=== PATIENT | male | born 1960 ===

== ENCOUNTER 2016-10-30 13:26 | Emergency (ER) | payer MEDICARE, OTHER ==
[2016-10-30 13:26] VITALS: BMI 26.9
[2016-10-30 13:40] VITALS: TEMP 97; O2SAT 100
--- NOTE | 2016-10-30 14:23 | ED PDOC ---
Past Medical History Vital Signs: Last Vital Signs Temp 97 F L 10/30/16 13:38 Pulse 80 10/30/16 13:38 Resp 20 10/30/16 13:38 BP 159/100 H 10/30/16 13:38 Pulse Ox 100 10/30/16 13:38 - Medical History PMH: Gastritis (EGD 10/07 showed Jodi, GERD and Gastritis), Gall Bladder Disease, HIV Denies: Crohn's Disease, Diverticulitis, Pancreatitis, Chronic Kidney Disease - Surgical History Surgical History: Cholecystectomy, Endoscopy - Family History Family History: States: Unknown Family Hx - Immunization History Hx Tetanus Toxoid Vaccination: Yes Hx Influenza Vaccination: Yes Hx Pneumococcal Vaccination: Yes - Home Medications Home Medications: Ambulatory Orders Medication Instructions Recorded Lopinavir/Ritonavir [Kaletra 200 mg PO BID 04/22/13 200-50 mg Tablet] valGANciclovir [Valcyte] 450 mg PO DAILY 04/22/13 Famotidine [Pepcid] 20 mg PO HS #20 tab 06/18/15 Emtricitabine/Tenofovir (Tdf) 1 each PO DAILY 06/13/16 [Truvada 100 mg-150 mg Tablet] Hydrocortisone [Cortef] 10 mg PO BID 06/13/16 Ondansetron [Zofran Odt] 4 mg PO Q8 PRN #12 odt 06/13/16 traMADol [Ultram] 50 mg PO BID PRN #12 tab 06/13/16 - Allergies Allergies/Adverse Reactions: Allergies Allergy/AdvReac Type Severity Reaction Status Date / Time No Known Allergies Allergy Verified 10/30/16 13:34 - ECG O2 Sat by Pulse Oximetry: 100
--- NOTE | 2016-10-30 14:23 | ED PDOC ---
HPI: Male Pain Time Seen by Provider: 10/30/16 14:11 Chief Complaint (Nursing): Male Genitourinary Chief Complaint (Provider): Male Genitourinary History Per: Patient History/Exam Limitations: no limitations Onset/Duration Of Symptoms: Days (6x) Current Symptoms Are (Timing): Still Present Severity: Moderate Quality Of Discomfort: Burning, "Pain" Associated Symptoms: Fever (1x day (yesterday), has since resolved), Loss Of Appetite, Back Pain, Urinary Symptoms (burning and pain while urinating, urgency and frequency). denies: Nausea, Vomiting, Diarrhea, Chest Pain, Constipation Additional History Per: Patient Additional Complaint(s): 56 year old male with no pertinent medical history presents to the ED with complaints of dysuria that started 6x days ago and has been worsening. He reports that it tian and is painful to urinate, and he has associated symptoms of urgency, frequency, loss of appetite, and lower back pain. He denies having any penile rashes or discharge, shortness of breath, chest pain, abdominal pain , nausea, vomiting, diarrhea. PMD: Anita Muhammad MD Past Medical History Reviewed: Historical Data, Nursing Documentation, Vital Signs Vital Signs: Last Vital Signs Temp 97 F L 10/30/16 13:38 Pulse 80 10/30/16 13:38 Resp 20 10/30/16 13:38 BP 159/100 H 10/30/16 13:38 Pulse Ox 100 10/30/16 13:38 - Medical History PMH: Gastritis (EGD 10/07 showed Jodi, GERD and Gastritis), Gall Bladder Disease, HIV Denies: Crohn's Disease, Diverticulitis, Pancreatitis, Chronic Kidney Disease - Surgical History Surgical History: Cholecystectomy, Endoscopy - Family History Family History: States: Unknown Family Hx - Social History Current smoker - smoking cessation education provided: No Alcohol: None Drugs: Denies - Immunization History Hx Tetanus Toxoid Vaccination: Yes Hx Influenza Vaccination: Yes Hx Pneumococcal Vaccination: Yes - Home Medications Home Medications: Ambulatory Orders Medication Instructions Recorded Lopinavir/Ritonavir [Kaletra 200 mg PO BID 04/22/13 200-50 mg Tablet] valGANciclovir [Valcyte] 450 mg PO DAILY 04/22/13 Famotidine [Pepcid] 20 mg PO HS #20 tab 06/18/15 Emtricitabine/Tenofovir (Tdf) 1 each PO DAILY 06/13/16 [Truvada 100 mg-150 mg Tablet] Hydrocortisone [Cortef] 10 mg PO BID 06/13/16 Ondansetron [Zofran Odt] 4 mg PO Q8 PRN #12 odt 06/13/16 traMADol [Ultram] 50 mg PO BID PRN #12 tab 06/13/16 Ciprofloxacin HCl [Cipro] 500 mg PO BID 7 Days 10/30/16 - Allergies Allergies/Adverse Reactions: Allergies Allergy/AdvReac Type Severity Reaction Status Date / Time No Known Allergies Allergy Verified 10/30/16 13:34 Review of Systems ROS Statement: Except As Marked, All Systems Reviewed And Found Negative Constitutional: Positive for: Fever (1x day, has since resolved), Other (lack of appetite) Cardiovascular: Negative for: Chest Pain Respiratory: Negative for: Shortness of Breath Gastrointestinal: Negative for: Nausea, Vomiting, Abdominal Pain, Diarrhea, Constipation Genitourinary Male: Positive for: Dysuria, Frequency. Negative for: Incontinence, Hematuria, Penile Discharge, Rash Musculoskeletal: Positive for: Back Pain (lower back pain), Leg Pain (right leg pain) Skin: Negative for: Rash, Lesions Physical Exam - Reviewed Nursing Documentation Reviewed: Yes Vital Signs Reviewed: Yes - Physical Exam Appears: Positive for: Well, Non-toxic, No Acute Distress Head Exam: Positive for: ATRAUMATIC, NORMOCEPHALIC Skin: Positive for: Normal Color, Warm, Dry. Negative for: Rash Cardiovascular/Chest: Positive for: Regular Rate, Rhythm, Chest Non Tender Respiratory: Positive for: Normal Breath Sounds. Negative for: Respiratory Distress Gastrointestinal/Abdominal: Positive for: Normal Exam, Soft. Negative for: Tenderness Male Genital Exam: Positive for: normal genitalia, other (Chaperoned by the scribe (Ailyn). circumcised. normal cremasteric reflex.). Negative for: erythema , lesions, testicular tenderness (R), testicular tenderness (L), urethral discharge Back: Negative for: Normal Inspection (mild tenderness across lower back), L CVA Tenderness, R CVA Tenderness, Other (no flank tenderness) Extremity: Positive for: Normal ROM Neurologic/Psych: Positive for: Alert, Oriented (3x) - Laboratory Results Result Diagrams: 10/30/16 15:00 10/30/16 15:00 - ECG O2 Sat by Pulse Oximetry: 100 (RA) Pulse Ox Interpretation: Normal - Progress ED Course And Treament: 1730: Stable. AAOx3. Urine with no findings. Appendix mild dilated. Spoke with surgery. Will see pt. in ER. 1803: Surgery resident saw pt. and spoke with Dr. Hoover. Want pt. to be dc. Not appendicitis per their evaluation. Will dc with cipro for uti clinical presentation. Tolerated PO. Ambulated. No abd pain. Medical Decision Making Medical Decision Makin:11 Initial impression: 56 year old male with dysuria and lower back pain. Initial plan: * CMP * lactic acid, plasma * udip * CBC * IV NS 1,000ml IV 1,000mls/hr * toradol 30mg IV * blood culture * urine culture * urinalysis * reevaluation Scribe Attestation: Documented by Katia Dupree, acting as a scribe for Esvin Warren MD. Provider Scribe Attestation: All medical record entries made by the Scribe were at my direction and personally dictated by me. I have reviewed the chart and agree that the record accurately reflects my personal performance of the history, physical exam, medical decision making, and the department course for this patient. I have also personally directed, reviewed, and agree with the discharge instructions and disposition. Disposition - Clinical Impression Clinical Impression: UTI (urinary tract infection) - Patient ED Disposition Is Patient to be Admitted: No - Disposition Referrals: [facility] [Outside] - 11/01/16 Disposition: Routine/Home Disposition Time: 18:06 Condition: STABLE Additional Instructions: Return if not better in 3 days. If any abd pain, not feeling well, fears, nausea, vomit, come back right away for further evaluation as it could be related to your appendix. Prescriptions: Ciprofloxacin HCl [Cipro] 500 mg PO BID 7 Days Instructions: Urinary Tract Infection in Men (ED)
[2016-10-30] MEDS ORDERED: Sodium Chloride 0.9% 1,000 ML IV STA (14:24)
[2016-10-30 15:22] LABS: BASO % 0.7 % (0.0-2.0); EOS # 0.1 K/uL (0.0-0.7); EOS % 2.9 % (0.0-4.0); HEMATOCRIT 41.1 % (35.0-51.0); LYMPH % 31.8 % (20.0-40.0); MEAN CELL VOLUME 97.7 fl (80.0-94.0); MEAN CORPUSCULAR HEMOGLOBIN 33.2 pg (27.0-31.0); MEAN CORPUSCULAR HGB CONC 33.9 g/dL (33.0-37.0); MEAN PLATELET VOLUME 9.8 fl (7.2-11.7); MONO # 0.1 K/uL (0.0-0.8); MONO % 4.4 % (0.0-10.0); NEUT # 1.9 K/uL (1.8-7.0); NEUT % 60.2 % (50.0-75.0); NRBC % 0.2 % (0.0-0.0); RED CELL DISTRIBUTION WIDTH 12.1 % (11.5-14.5); WHITE BLOOD COUNT 3.2 K/uL (4.8-10.8)
[2016-10-30 15:26] LABS: ALB/GLOB RATIO 1.2 (1.0-2.1); ALKALINE PHOSPHATASE 83 U/L (38-126); ALT/SGPT 26 U/L (21-72); AST/SGOT 43 U/L (17-59); BILIRUBIN,TOTAL 4.4 mg/dl (0.2-1.3); BLOOD UREA NITROGEN 9 mg/dl (9-20); CALCIUM 9.2 mg/dL (8.4-10.2); CARBON DIOXIDE 23 mmol/L (22-30); CHLORIDE 102 mmol/L (98-107); GFR AFRICAN-AMERICAN > 60; GLUCOSE,RANDOM 92 mg/dL (75-110); SODIUM 139 mmol/l (132-148); TOTAL PROTEIN 8.9 G/DL (6.3-8.2)
[2016-10-30 15:27] LABS: POTASSIUM 4.6 MMOL/L (3.6-5.0)
[2016-10-30 15:35] LABS: RBC URINE 1 /hpf (0-3); URINE BILIRUBIN NEGATIVE (NEGATIVE); URINE BLOOD NEGATIVE (NEGATIVE); URINE COLOR STRAW (YELLOW); URINE GLUCOSE (UA) NEG (Normal); URINE KETONE NEGATIVE (NEGATIVE); URINE LEUKOCYTE ESTERASE NEG Leu/uL (Negative); URINE PROTEIN NEGATIVE (NEGATIVE); URINE UROBILINOGEN 0.2-1.0 mg/dL (0.2-1.0); WBC URINE < 1 /hpf (0-5)
[2016-10-30] MEDS ORDERED: Sodium Chloride 0.9% 50 ML IV ONE (16:17)
[2016-10-30] MEDS ORDERED: Iohexol 300 100 ML IJ ONE (16:17)
--- NOTE | 2016-10-30 17:17 | CT ---
PROCEDURE: CT Abdomen and Pelvis with contrast HISTORY: Painful urination. COMPARISON: None. TECHNIQUE: Contrast dose: 40 cc Omnipaque 300 Radiation dose: Total exam DLP = 922.02 mGy-cm. This CT exam was performed using one or more of the following dose reduction techniques: Automated exposure control, adjustment of the mA and/or kV according to patient size, and/or use of iterative reconstruction technique. FINDINGS: LOWER THORAX: Unremarkable. LIVER: Unremarkable. No gross lesion or ductal dilatation. GALLBLADDER AND BILE DUCTS: Status post cholecystectomy. No abnormality is seen in the gallbladder fossa. PANCREAS: Unremarkable. No gross lesion or ductal dilatation. SPLEEN: Unremarkable. ADRENALS: Unremarkable. No mass. KIDNEYS AND URETERS: Unremarkable. No hydronephrosis. No solid mass. VASCULATURE: Unremarkable. No aortic aneurysm. BOWEL: Unremarkable. No obstruction. No gross mural thickening. APPENDIX: Prominent slightly dilated appendix. No evidence of right lower quadrant, periappendiceal inflammatory changes. Appendiceal diameter 9 mm. PERITONEUM: Unremarkable. No free fluid. No free air. LYMPH NODES: Unremarkable. No enlarged lymph nodes. BLADDER: Unremarkable. REPRODUCTIVE: Unremarkable. BONES: No acute fracture. OTHER FINDINGS: None. IMPRESSION: No acute findings related to/accounting for the clinical presentation. Additional benign and/or incidental findings described above. The appendix is mildly dilated without evidence of inflammatory changes. Communication of results: I discussed findings directly with the attending physician in the emergency department Dr. Warren at 17:14. October 30, 2016.
[2016-10-30 18:19] VITALS: BP 124/85; PULSE 64; RESP 18
--- NOTE | 2016-10-30 18:35 | CP.PCM.CON ---
History of Present Illness - History of Present Illness History of Present Illness: General Surgery Consult Note for Dr. king This is a 56M with a PMH of HTN and HIV last CD4 is 360 on heart meds. He presents due to 6 days history of painful urination and back pain. The patient reports a 101 fever at home. He denies any blood in his urine, however he does report back pain. He reports that he is having loose non bloody stools. He denies any abdominal pain at this time or throughout the 6 days of urinary symptoms. He deneis nausea and or vomiting. PMH: See above PSH: Cholecystectomy ALL: NKDA Social denies Tobacco, ETOH, Drugs Review of Systems - Constitutional Constitutional: Fever. absent: Anorexia, Chills, Weight Loss - EENT Eyes: absent: Blind Spots, Blurred Vision Ears: absent: Ear Discharge, Ear Pain Nose/Mouth/Throat: absent: Nasal Congestion, Nose Pain - Cardiovascular Cardiovascular: absent: Chest Pain, Dyspnea - Respiratory Respiratory: absent: Dyspnea, Dyspnea on Exertion - Gastrointestinal Gastrointestinal: absent: Abdominal Pain, Bloating, Cramping, Diarrhea, Dysphagia, Heartburn, Hematemesis, Nausea, Vomiting - Genitourinary Genitourinary: Dysuria - Musculoskeletal Musculoskeletal: Back Pain Past Patient History - Infectious Disease Hx of Infectious Diseases: None - Past Medical History & Family History Past Medical History?: Yes - Past Social History Alcohol: None Drugs: Denies - CARDIAC Hx Cardiac Disorders: No - PULMONARY Hx Respiratory Disorders: No - NEUROLOGICAL Hx Neurological Disorder: No - HEENT Hx HEENT Problems: No - RENAL Hx Chronic Kidney Disease: No - ENDOCRINE/METABOLIC Hx Endocrine Disorders: No - HEMATOLOGICAL/ONCOLOGICAL Hx Human Immunodeficiency Virus (HIV): Yes - INTEGUMENTARY Hx Dermatological Problems: No - MUSCULOSKELETAL/RHEUMATOLOGICAL Hx Musculoskeletal Disorders: No - GASTROINTESTINAL Hx Crohn's Disease: No Hx Diverticulitis: No Hx Gall Bladder Disease: Yes Hx Gastritis: Yes (EGD 10/07 showed Jodi, GERD and Gastritis) Hx Pancreatitis: No - GENITOURINARY/GYNECOLOGICAL Hx Genitourinary Disorders: No - PSYCHIATRIC Hx Substance Use: No - SURGICAL HISTORY Hx Cholecystectomy: Yes - ANESTHESIA Hx Anesthesia: Yes Hx Anesthesia Reactions: No Hx Malignant Hyperthermia: No Meds Home Medications: Home Medication List Medication Instructions Recorded Confirmed Type Ciprofloxacin HCl [Cipro] 500 mg PO BID 7 Days 10/30/16 Rx Allergies/Adverse Reactions: Allergies Allergy/AdvReac Type Severity Reaction Status Date / Time No Known Allergies Allergy Verified 10/30/16 13:34 Physical Exam - Constitutional Appears: Non-toxic, No Acute Distress - Head Exam Head Exam: ATRAUMATIC, NORMOCEPHALIC - Eye Exam Eye Exam: EOMI, Normal appearance - ENT Exam ENT Exam: Mucous Membranes Moist - Respiratory Exam Respiratory Exam: NORMAL BREATHING PATTERN - Cardiovascular Exam Cardiovascular Exam: REGULAR RHYTHM - GI/Abdominal Exam GI & Abdominal Exam: Soft. absent: Distended, Firm, Guarding, Hernia, Rebound, Rigid Additional comments: No mcburnys tenderness, no rovsing, no rebound - Extremities Exam Extremities exam: Positive for: normal inspection - Neurological Exam Neurological exam: Alert, Oriented x3 - Psychiatric Exam Psychiatric exam: Normal Affect, Normal Mood - Skin Skin Exam: Normal Color, Warm Results - Vital Signs Recent Vital Signs: Last Vital Signs Temp 97 F L 10/30/16 13:38 Pulse 64 10/30/16 18:16 Resp 18 10/30/16 18:16 BP 124/85 10/30/16 18:16 Pulse Ox 100 10/30/16 18:16 - Labs Result Diagrams: 10/30/16 15:00 10/30/16 15:00 Labs: Laboratory Results - last 24 hr 10/30/16 10/30/16 10/30/16 15:00 15:00 15:00 WBC 3.2 L RBC 4.21 L Hgb 13.9 Hct 41.1 MCV 97.7 H MCH 33.2 H MCHC 33.9 RDW 12.1 Plt Count 156 MPV 9.8 Neut % (Auto) 60.2 Lymph % (Auto) 31.8 [place] % (Auto) 4.4 Eos % (Auto) 2.9 Baso % (Auto) 0.7 Neut # 1.9 Lymph # 1.0 [place] # 0.1 Eos # 0.1 Baso # 0.0 Sodium 139 Potassium 4.6 Chloride 102 Carbon Dioxide 23 Anion Gap 18 BUN 9 Creatinine 1.0 Est GFR ( Amer) > 60 Est GFR (Non-Af Amer) > 60 Random Glucose 92 Lactic Acid Calcium 9.2 Total Bilirubin 4.4 H AST 43 ALT 26 Alkaline Phosphatase 83 Total Protein 8.9 H Albumin 4.9 Globulin 4.0 H Albumin/Globulin Ratio 1.2 Urine Color Straw Urine Clarity Clear Urine pH 6.0 Ur Specific [place] < 1.005 Urine Protein Negative Urine Glucose (UA) Neg Urine Ketones Negative Urine Blood Negative Urine Nitrate Negative Urine Bilirubin Negative Urine Urobilinogen 0.2-1.0 Ur Leukocyte Esterase Neg Urine RBC (Auto) 1 Urine Microscopic WBC < 1 10/30/16 15:00 WBC RBC Hgb Hct MCV MCH MCHC RDW Plt Count MPV Neut % (Auto) Lymph % (Auto) [place] % (Auto) Eos % (Auto) Baso % (Auto) Neut # Lymph # [place] # Eos # Baso # Sodium Potassium Chloride Carbon Dioxide Anion Gap BUN Creatinine Est GFR ( Amer) Est GFR (Non-Af Amer) Random Glucose Lactic Acid 1.0 Calcium Total Bilirubin AST ALT Alkaline Phosphatase Total Protein Albumin Globulin Albumin/Globulin Ratio Urine Color Urine Clarity Urine pH Ur Specific [place] Urine Protein Urine Glucose (UA) Urine Ketones Urine Blood Urine Nitrate Urine Bilirubin Urine Urobilinogen Ur Leukocyte Esterase Urine RBC (Auto) Urine Microscopic WBC - Imaging and Cardiology CT scan - abdomen Status: Image reviewed by me, Report reviewed by me Assessment & Plan - Assessment and Plan (Free Text) Assessment: This is a 56M with dysuria and back pain for [address] abdomen: mildly dilated appendix with no inflamatory changes DC on antibiotics Return to emergency room if fever get worse return to emergency room if you develop abdominal pain D/W Dr. Tanika Calixto PGY-1
== END 2016-10-30 18:19 | disposition home or self-care (01) ==
LOC: H.ER 13:26
DX: N39.0 Urinary tract infection, site not specified (principal); I10 Essential (primary) hypertension; Z21 Asymptomatic human immunodeficiency virus [HIV] infection status
CPT/HCPCS: 74177; 80053; 81003; 83605; 85025; 87040; 87086; 96360; 99283; J1885; J7040; Q9967

== ENCOUNTER 2017-11-14 06:24 | Emergency (ER) | payer MEDICARE, SELFPAY ==
[2017-11-14 06:25] VITALS: BMI 26.9
[2017-11-14 06:38] VITALS: TEMP 97.9
[2017-11-14] MEDS ORDERED: Sodium Chloride 0.9% 1,000 ML IV STA (07:23)
[2017-11-14] MEDS ORDERED: Famotidine 20mg/50ml Premix IVPB STA (07:23)
--- NOTE | 2017-11-14 07:26 | ED PDOC ---
HPI: Abdomen Time Seen by Provider: 11/14/17 07:09 Chief Complaint (Nursing): Abdominal Pain Chief Complaint (Provider): Abdominal Pain History Per: Patient History/Exam Limitations: no limitations Onset/Duration Of Symptoms: Days (x2 weeks) Current Symptoms Are (Timing): Still Present Location Of Pain/Discomfort: RUQ, LUQ Quality Of Discomfort: Sharp, Burning Additional Complaint(s): 57 year old male presents to the emergency department complaining of constant, sharp, burning bilateral upper abdominal pain, onset two weeks. Patient states the pain worsened last night, prompting his visit today. He denies eating new foods, nausea, vomiting, diarrhea, back pain, chest pain, and shortness of breath. The patient does note he has been burping lately. No weakness. No drugs or etoh. PMD: Anita Muhammad Past Medical History Reviewed: Historical Data, Nursing Documentation, Vital Signs Vital Signs: Last Vital Signs Temp 97.9 F 11/14/17 06:35 Pulse 71 11/14/17 06:35 Resp 16 11/14/17 06:35 BP 143/90 11/14/17 06:35 Pulse Ox 99 11/14/17 08:44 - Medical History PMH: Gastritis (EGD 10/07 showed Jodi, GERD and Gastritis), Gall Bladder Disease, HIV Denies: Crohn's Disease, Diverticulitis, Pancreatitis, Chronic Kidney Disease - Surgical History Surgical History: Appendectomy, Cholecystectomy, Endoscopy - Family History Family History: States: Unknown Family Hx - Immunization History Hx Tetanus Toxoid Vaccination: Yes Hx Influenza Vaccination: Yes Hx Pneumococcal Vaccination: Yes - Home Medications Home Medications: Ambulatory Orders Medication Instructions Recorded Lopinavir/Ritonavir [Kaletra 200 mg PO BID 04/22/13 200-50 mg Tablet] valGANciclovir [Valcyte] 450 mg PO DAILY 04/22/13 Emtricitabine/Tenofovir (Tdf) 1 each PO DAILY 06/13/16 [Truvada 100 mg-150 mg Tablet] Hydrocortisone [Cortef] 10 mg PO BID 06/13/16 Famotidine [Pepcid] 20 mg PO DAILY 09/14/17 Mv,Min10/Folic Acid/D3/Ala/Lut 1 tab PO DAILY 09/14/17 [Strovite One Caplet] Fluticasone Nasal [Flonase] 1 actuation NS DAILY #1 spr 09/20/17 Famotidine [Pepcid] 20 mg PO DAILY PRN #6 tab 11/14/17 - Allergies Allergies/Adverse Reactions: Allergies Allergy/AdvReac Type Severity Reaction Status Date / Time No Known Allergies Allergy Verified 09/20/17 18:36 Review of Systems ROS Statement: Except As Marked, All Systems Reviewed And Found Negative Cardiovascular: Negative for: Chest Pain Respiratory: Negative for: Shortness of Breath Gastrointestinal: Positive for: Abdominal Pain (bilateral upper quadrants). Negative for: Nausea, Vomiting, Diarrhea Musculoskeletal: Negative for: Back Pain Physical Exam - Reviewed Nursing Documentation Reviewed: Yes Vital Signs Reviewed: Yes - Physical Exam Appears: Positive for: Non-toxic, No Acute Distress Head Exam: Positive for: ATRAUMATIC, NORMOCEPHALIC Skin: Positive for: Normal Color, Warm, Dry Neck: Positive for: Normal, Painless ROM, Supple Cardiovascular/Chest: Positive for: Regular Rate, Rhythm. Negative for: Murmur Respiratory: Positive for: Normal Breath Sounds. Negative for: Respiratory Distress Gastrointestinal/Abdominal: Positive for: Soft, Tenderness (mild, across upper abdomen) Back: Positive for: Normal Inspection. Negative for: L CVA Tenderness, R CVA Tenderness, Vertebral Tenderness Extremity: Positive for: Normal ROM Neurologic/Psych: Positive for: Alert, Oriented (x3). Negative for: Motor/ Sensory Deficits - Laboratory Results Result Diagrams: 11/14/17 07:40 11/14/17 07:40 Interpretation Of Abn Labs: no acute - ECG ECG: Positive for: Interpreted By Me, Viewed By Me Interpretation Of Abn EKst degree AV block O2 Sat by Pulse Oximetry: 99 (RA) Pulse Ox Interpretation: Normal - Progress ED Course And Treament: 1052: Stable. AAOx3. Pain free. Tolerated PO. Fu with pcp. Medical Decision Making Medical Decision Making: Time: 7:23 Initial Impression: r/o pancreatitis Initial Plan: --EKG --CMP --Lipase --Trop 1 --CBC w differential --PTT / PT --Sodium chloride 0.9% 1000ml IV --Famotidine 20mg IVPB --Toradol 15mg IVP Scribe Attestation: Documented by Heather Mahmood, acting as a scribe for Dr. Kelvin Mcallister. Provider Scribe Attestation: All medical record entries made by the Scribe were at my direction and personally dictated by me. I have reviewed the chart and agree that the record accurately reflects my personal performance of the history, physical exam, medical decision making, and the department course for this patient. I have also personally directed, reviewed, and agree with the discharge instructions and disposition. Disposition - Clinical Impression Clinical Impression: Abdominal discomfort - Patient ED Disposition Is Patient to be Admitted: No Counseled Patient/Family Regarding: Studies Performed, Diagnosis, Need For Followup, Rx Given - Disposition Referrals: Anita Muhammad MD [Primary Care Provider] - 11/15/17 Disposition: Routine/Home Disposition Time: 09:52 Condition: STABLE Additional Instructions: Return if not better in 3 days. Prescriptions: Famotidine [Pepcid] 20 mg PO DAILY PRN #6 tab PRN Reason: Pain Instructions: Stomach Ache and Stomach Upset Forms: [employer] (British), [facility] School/Work Excuse
[2017-11-14 08:07] LABS: ALBUMIN 4.2 g/dL (3.5-5.0); ALT/SGPT 33 U/L (21-72); AST/SGOT 27 U/L (17-59); BLOOD UREA NITROGEN 11 mg/dl (9-20); CALCIUM 9.1 mg/dL (8.4-10.2); GFR AFRICAN-AMERICAN > 60; GFR NON-AFRICAN AMERICAN > 60; LIPASE 102 U/L (23-300)
[2017-11-14] MEDS ORDERED: Famotidine 20mg/50ml 20 MG/50 ML BAG IVPB ONE (08:10)
[2017-11-14 08:25] LABS: INR 1.1 (0.9-1.2); PARTIAL THROMBOPLASTIN TIME 30.5 Seconds (25.6-37.1); PROTHROMBIN TIME 12.7 Seconds (9.8-13.1)
[2017-11-14 09:36] LABS: EOS # 0.4 K/uL (0.0-0.7); EOS % 10.7 % (0.0-4.0); HEMOGLOBIN 13.6 g/dL (12.0-18.0); LYMPH # 1.2 K/uL (1.0-4.3); LYMPH % 31.7 % (20.0-40.0); MEAN CORPUSCULAR HEMOGLOBIN 33.5 pg (27.0-31.0); MEAN CORPUSCULAR HGB CONC 34.6 g/dL (33.0-37.0); MEAN PLATELET VOLUME 9.3 fl (7.2-11.7); MONO # 0.2 K/uL (0.0-0.8); MONO % 5.2 % (0.0-10.0); NEUT % 51.4 % (50.0-75.0); RBC 4.05 Mil/uL (4.40-5.90); RED CELL DISTRIBUTION WIDTH 12.7 % (11.5-14.5); WHITE BLOOD COUNT 3.9 K/uL (4.8-10.8)
--- NOTE | 2017-11-14 10:11 | CARD ---
APPROVED REPORT EKG Measurement Heart [id number] AL [id number] <Conclusion> Sinus bradycardia with 1st degree AV block Otherwise normal ECG
[2017-11-14 11:42] VITALS: BP 125/87; PULSE 56; RESP 17; O2SAT 100
== END 2017-11-14 11:31 | disposition home or self-care (01) ==
LOC: H.ER 06:24
DX: R10.811 Right upper quadrant abdominal tenderness (principal); K21.9 Gastro-esophageal reflux disease without esophagitis
CPT/HCPCS: 80053; 83690; 84484; 85025; 85610; 85730; 93005; 96365; 96375; 99283; J1885; J7040

== ENCOUNTER 2018-11-14 09:20 | Emergency (ER) | payer MEDICARE, OTHER ==
[2018-11-14 09:36] VITALS: BMI 27.7
[2018-11-14] MEDS ORDERED: Sodium Chloride 0.9% 1,000 ML IV STA (10:15)
--- NOTE | 2018-11-14 10:19 | ED PDOC ---
HPI: Abdomen Time Seen by Provider: 11/14/18 09:56 Chief Complaint (Nursing): Abdominal Pain Chief Complaint (Provider): Abd pain History Per: Patient History/Exam Limitations: no limitations Onset/Duration Of Symptoms: Days (3 weeks) Additional Complaint(s): Pt. with eigastric pain for 3 weeks constant. No injury. Saw pcp and tylenol given and did not help. Denies any nausea, vomit, diarrhea, weakness, headaches, dizziness, back pain, chest pain, dyspnea, fever, dizziness. No testicular pain, drugs, etoh, alcohol. Past Medical History Reviewed: Nursing Documentation, Vital Signs Vital Signs: Last Vital Signs Temp 98.4 F 11/14/18 09:35 Pulse 65 11/14/18 09:35 Resp 16 11/14/18 09:35 BP 155/91 H 11/14/18 09:35 Pulse Ox 98 11/14/18 09:35 Primary Care Provider: DoctorSury - Medical History PMH: Gastritis, Gall Bladder Disease, HIV Denies: Crohn's Disease, Diverticulitis, Pancreatitis, Chronic Kidney Disease - Surgical History Surgical History: Appendectomy, Cholecystectomy, Endoscopy - Family History Family History: States: Unknown Family Hx - Immunization History Hx Tetanus Toxoid Vaccination: (Patient unsure) Hx Influenza Vaccination: Yes (2018) Hx Pneumococcal Vaccination: Yes (2017) - Home Medications Home Medications: Ambulatory Orders Medication Instructions Recorded Lopinavir/Ritonavir [Kaletra 200 mg PO BID 04/22/13 200-50 mg Tablet] valGANciclovir [Valcyte] 450 mg PO DAILY 04/22/13 Emtricitabine/Tenofovir (Tdf) 1 each PO DAILY 06/13/16 [Truvada 100 mg-150 mg Tablet] Hydrocortisone [Cortef] 10 mg PO DAILY 06/13/16 Multivit-Min/FA/Lycopen/Lutein 1 each PO DAILY 02/03/18 [Centrum Silver Men Tablet] Cyclobenzaprine [Cyclobenzaprine 10 mg PO Q8H PRN #15 tab 06/10/18 HCl] Acyclovir 400 mg PO BID #10 tablet 08/31/18 Ibuprofen [Motrin Tab] 800 mg PO TID PRN #30 tab 08/31/18 Ibuprofen [Motrin] 600 mg PO TID 7 Days tab 11/14/18 Lidocaine 5% [Lidoderm] 1 ea TD DAILY PRN #5 patch 11/14/18 - Allergies Allergies/Adverse Reactions: Allergies Allergy/AdvReac Type Severity Reaction Status Date / Time No Known Allergies Allergy Verified 11/14/18 10:06 Review of Systems ROS Statement: Except As Marked, All Systems Reviewed And Found Negative Gastrointestinal: Positive for: Abdominal Pain Physical Exam - Reviewed Nursing Documentation Reviewed: Yes Vital Signs Reviewed: Yes - Physical Exam Appears: Positive for: Non-toxic, No Acute Distress Head Exam: Positive for: ATRAUMATIC, NORMAL INSPECTION, NORMOCEPHALIC Skin: Positive for: Normal Color, Warm, DRY Eye Exam: Positive for: EOMI, Normal appearance, PERRL ENT: Positive for: Normal ENT Inspection Neck: Positive for: Normal, Painless ROM Cardiovascular/Chest: Positive for: Regular Rate, Rhythm Respiratory: Positive for: CNT, Normal Breath Sounds Gastrointestinal/Abdominal: Positive for: Soft, Tenderness (mild epigastric area and rib in that area on the left. ) Back: Positive for: Normal Inspection. Negative for: L CVA Tenderness, R CVA Tenderness Extremity: Positive for: Normal ROM. Negative for: Tenderness, Pedal Edema Neurological/Psych: Positive for: Awake, Alert, Normal Tone - Laboratory Results Result Diagrams: 11/14/18 10:49 11/14/18 10:49 Lab Results: no acute - ECG ECG: Positive for: Interpreted By Me, Viewed By Me ECG Rhythm: Positive for: Normal QRS, Normal ST Segment, Sinus Rhythm O2 Sat by Pulse Oximetry: 98 Pulse Ox Interpretation: Normal - Radiology X-Ray: Interpreted by Me, Viewed By Me X-Ray Interpretation: No Acute Disease - Progress ED Course And Treament: 1402: Pt. states pain in right on rib left lower. On palpation tender between the rib on left lower. No abd pain tenderness. Will put on lidocaine patch. Agres to fu with pcp. AAOx3. Tolerated PO. Disposition - Clinical Impression Clinical Impression: Chest wall pain - Patient ED Disposition Is Patient to be Admitted: No Counseled Patient/Family Regarding: Studies Performed, Diagnosis, Need For Followup, Rx Given - Disposition Referrals: [facility] [Outside] - 11/18/18 Disposition: Routine/Home Disposition Time: 14:04 Condition: STABLE Additional Instructions: Return if not better in 3 days. Prescriptions: Ibuprofen [Motrin] 600 mg PO TID 7 Days tab Lidocaine 5% [Lidoderm] 1 ea TD DAILY PRN #5 patch PRN Reason: Pain, Moderate (4-7) Instructions: Chest Pain (DC) Forms: [facility] ([facility]), [facility] ED School/Work Excuse
[2018-11-14 10:55] LABS: BASO % 0.2 % (0.0-2.0); HEMOGLOBIN 13.7 g/dL (12.0-18.0); LYMPH # 0.6 K/uL (1.0-4.3); LYMPH % 9.1 % (20.0-40.0); MEAN CELL VOLUME 97.4 fl (80.0-94.0); MEAN CORPUSCULAR HEMOGLOBIN 33.9 pg (27.0-31.0); MEAN CORPUSCULAR HGB CONC 34.8 g/dL (33.0-37.0); MONO # 0.1 K/uL (0.0-0.8); MONO % 2.1 % (0.0-10.0); NEUT # 5.7 K/uL (1.8-7.0); NEUT % 88.6 % (50.0-75.0); PLATELET COUNT 194 K/uL (130-400); RBC 4.03 Mil/uL (4.40-5.90); RED CELL DISTRIBUTION WIDTH 11.9 % (11.5-14.5); WHITE BLOOD COUNT 6.5 K/uL (4.8-10.8)
[2018-11-14 11:05] LABS: ALB/GLOB RATIO 1.3 (1.0-2.1); ALBUMIN 4.6 g/dL (3.5-5.0); ALT/SGPT 22 U/L (21-72); AST/SGOT 21 U/L (17-59); BLOOD UREA NITROGEN 15 mg/dl (9-20); GFR NON-AFRICAN AMERICAN > 60; LIPASE 62 U/L (23-300)
[2018-11-14 11:40] LABS: LYMPHOCYTE 9 % (20-50); MONOCYTE 3 % (0-10); NEUTROPHIL 88 % (42-75); PLATELET ESTIMATE NORMAL (NORMAL); TOTAL CELLS COUNTED 100
[2018-11-14 11:41] LABS: ANISOCYTOSIS SLIGHT
[2018-11-14 11:42] LABS: LARGE PLATELETS PRESENT; TEARDROP CELLS SLIGHT
--- NOTE | 2018-11-14 12:48 | CARD ---
APPROVED REPORT Date of service: 11/14/2018 EKG Measurement Heart [id number] <Conclusion> Sinus bradycardia with 1st degree AV block Otherwise normal ECG
[2018-11-14] MEDS ORDERED: Lidocaine 5% Patch TD STA (14:05)
[2018-11-14] MEDS ORDERED: Lidocaine 5% Patch TD ONE (14:36)
--- NOTE | 2018-11-14 14:39 | RAD ---
Date of service: 11/14/2018 HISTORY: epigastric pain COMPARISON: No prior. TECHNIQUE: Chest PA and lateral views FINDINGS: LUNGS: No active pulmonary disease. PLEURA: No significant pleural effusion identified. No pneumothorax apparent. CARDIOVASCULAR: No aortic atherosclerotic calcification present. Normal cardiac size. No pulmonary vascular congestion. OSSEOUS STRUCTURES: No significant abnormalities. VISUALIZED UPPER ABDOMEN: Normal. OTHER FINDINGS: None. IMPRESSION: No active disease.
[2018-11-14 14:44] VITALS: BP 137/97; PULSE 62; RESP 18; TEMP 97.6; O2SAT 100
== END 2018-11-14 14:39 | disposition home or self-care (01) ==
LOC: H.ER 09:20
DX: R07.89 Other chest pain (principal)
CPT/HCPCS: 71046; 80053; 83690; 84484; 85025; 93005; 96361; 96374; 96375; 99283; J1885; J7030